=== PATIENT | female | born 1980 | race Caucasian/White ===

== ENCOUNTER → 2024-04-07 17:58 | Outpatient (REF) | payer BC, SELFPAY | LOC: WDC 17:58 | PROVIDERS: ATTENDING PHYSICIAN Obstetrics & Gynecology; FAMILY PHYSICIAN Student in an Organized Health Care Education/Training Program | DX: Z12.31 Encounter for screening mammogram for malignant neoplasm of breast (principal) | CPT/HCPCS: 77063; 77067 ==

== ENCOUNTER → 2024-05-13 14:26 | Outpatient (REF) | payer BC, SELFPAY | LOC: RAD 14:26 | PROVIDERS: ATTENDING PHYSICIAN Student in an Organized Health Care Education/Training Program | DX: E28.39 Other primary ovarian failure (principal); Z78.0 Asymptomatic menopausal state | CPT/HCPCS: 77080 ==

== ENCOUNTER → 2025-02-16 15:29 | Outpatient (REF) | payer BC, SELFPAY | LOC: PAVMRI 15:29 | PROVIDERS: ATTENDING PHYSICIAN Student in an Organized Health Care Education/Training Program | DX: G44.201 Tension-type headache, unspecified, intractable (principal) | CPT/HCPCS: 70551 ==